=== PATIENT | female | born 1950 | race Caucasian/White ===

== ENCOUNTER 2017-05-31 12:46 | Emergency (ER) | payer BC ==
[~2017-05-31] VITALS: Ht 170.2 cm; Wt 65.2 kg
[2017-05-31 14:52] LABS: HEMATOCRIT 38.7 % (36.0-46.0); MCH 30.2 PG (29.0-34.0); MCHC 33.6 G/DL (30.0-36.0); MEAN PLAT.VOLUME 9.2 uM^3 (9.5-12.4); PLATELET COUNT 236 K/uL (156-360); RBC DIS.WIDTH-CV 12.8 % (11.8-14.6); RBC DIS.WIDTH-SD 42.3 % (39-53)
[2017-05-31 15:01] LABS: CHLORIDE 108 mEq/L (99-109); POTASSIUM 3.7 mEq/L (3.7-5.4); SODIUM 141 mEq/L (136-147)
[2017-05-31 15:03] LABS: GLUCOSE 122 mg/dL (70-99)
[2017-05-31 15:05] LABS: ANION GAP 9 MEQ/L (2-14)
[2017-05-31 15:07] LABS: GFR ESTIMATE (CALCULATED) > 59 mL/min/
[2017-05-31 15:08] LABS: UREA NITROGEN (BUN) 10 mg/dL (9-23)
[2017-05-31 17:05] VITALS: BP 105/66
[2017-05-31] MEDS ORDERED: SYNTHROID50 MCG PO (17:07)
== END 2017-05-31 17:11 | disposition home or self-care (01) ==
LOC: EME 12:46
PROVIDERS: Emergency Medicine
DX: G43.109 Migraine with aura, not intractable, without status migrainosus (principal); G45.9 Transient cerebral ischemic attack, unspecified; Z88.6 Allergy status to analgesic agent; Z87.442 Personal history of urinary calculi
CPT/HCPCS: 70450; 80048; 85027; 99281; 99285